=== PATIENT | female | born 1985 | race African-American/Black ===

== ENCOUNTER 2017-03-20 18:37 | Emergency (ER) | payer MEDICAID ==
[2017-03-20 18:51] VITALS: BMI 18.8
[2017-03-20] MEDS ORDERED: NS 1000 ML 1,000 ML IV ONE ×2 (19:14→23:40)
--- NOTE | 2017-03-20 19:15 | DR.GENAD ---
HPI - PCP Primary Care Physician: nfd - Complaint/Symptoms Chief Complaint:: thought she was coming on her period had about 3 tennis ball size clots come out 2 days ago. heavy bleeding has continued and patient is cold. drainage also has foul odor. patient does not know if she was and had a miscarrige. patient had a 2 years ago and the scar is burning now. Self Treatment fo Chief Complaint: patient has been on depo and missed the last 2 shots - Source History Provided: Patient - Mode of Arrival Mode of Arrival: Ambulatory - Timing Onset of Chief Complaint: 03/20/17 PMH - PMH Past Medical History: No Past Surgical History: Yes Surgical History: - Family History History of Family Medical Conditions: Yes Family Medical History: Diabetes Mellitus, Cancer, MS, Coronary Artery Disease, Heart Failure, Hypertension - Social History Does patient currently use any type of tobacco product: Yes Have you used tobacco products in the last 12 months: Yes Type of Tobacco Use: Cigarettes How many years tobacco product used: 10 Does any household member use tobacco: Yes Alcohol Use: Occasionally Do you use any recreational Drugs:: No Lives With: Mom Lives Where: Home - infectious screening In the last 2 months have you had wt loss of >10#?: NO Have you had fever, night sweats or hemotysis?: No Have you traveled outside the country in the last 6 months?: No Isolation: Standard ROS - Review of Systems Eyes: No Symptoms Reported ENTM: No Symptoms Reported Respiratoy: No Symptoms Reported Cardiovascular: No Symptoms Reported Gastrointestinal/Abdominal: No Symptoms Reported Genitourinary: No Symptoms Reported Neurological: No Symptoms Reported Musculoskeletal: No Symptoms Reported Integumentary: No Symptoms Reported Hematologic/Lymphatic: No Symptoms Reported Endocrine: No Symptoms Reported Psychiatric: No Symptoms Reported All Other Systems: Reviewed and Negative PE - Vital Signs Vitals: Temperature 98.8 F Pulse Rate 90 Respiratory Rate 16 Blood Pressure 92/55 O2 Sat by Pulse Oximetry 100 - General Limitations: No Limitations General Appearance: Alert, In No Apparent Distress - Head Head Exam: Normal Inspection, Atraumatic - Eyes Eye exam: Normal Appearance, PERRL, EOMI - ENT ENT Exam: Normal Exam External Ear Exam: Normal External Inspection TM/Canal Exam: Bilateral Normal Nose Exam: Normal Nose Exam Mouth Exam: Normal Inspection Throat Exam: Normal Inspection - Neck Neck Exam: Normal Inspection - Chest Chest Inspection: Normal Inspection - Respiratory Respiratory Exam: Normal Lung Sounds Bilat Respiratory Exam: Bilateral Clear to Auscultation - Cardiovascular Cardiovascular Exam: Regular Rate, Normal Rhythm - Abdominal Exam Abdominal Exam: Normal Inspection, Normal Bowel Sounds Abdominal Tenderness: negative: RUQ, RLQ, LUQ, LLQ, Epigastrium, Suprapubic, Diffuse, Mild, Moderate, Severe, Other - Extremities Extremities Exam: Normal Inspection, Full ROM - Back Back Exam: Normal Inspection - Neurologic Neurological Exam: Alert, Oriented X3, CN II-XII Intact - Psychiatric Psychiatric Exam: Normal Affect - Skin Skin Exam: Warm, Dry, Intact Course - Treatment Treatment: BP 104/94--History discussed with Dr Ramos, shed advised to have patient follow up with her physician for further evaluation and treatment - Reevaluation 1st: Improved - Education/Counseling Education/Counseling: Patient, Family Educated On: Treatment, Diagnosis, Prognosis, Needs for Follow Up ROR - Labs Reviewed Result Diagrams: 03/20/17 19:20 03/20/17 19:20 Laboratory: WBC 8.3 X10^3/uL (3.6-10.0) 03/20/17 19:20 RBC 3.11 X10^6/uL (3.5-5.4) L 03/20/17 19:20 Hgb 9.7 g/dL (12.0-16.0) L 03/20/17 19:20 Hct 27.4 % (36.0-47.0) L 03/20/17 19:20 MCV 87.9 fL (80.0-100.0) 03/20/17 19:20 MCH 31.0 pg (27.0-34.0) 03/20/17 19:20 MCHC 35.3 g/dL (33.0-35.0) H 03/20/17 19:20 RDW 13.2 % (11.6-16.5) 03/20/17 19:20 Plt Count 291 X10^3/uL (150.0-450.0) 03/20/17 19:20 MPV 7.4 fL (7.4-11.0) 03/20/17 19:20 Neut % 68.1 % (42.0-75.0) 03/20/17 19:20 Lymph % 25.2 % (21.0-51.0) 03/20/17 19:20 [place] % 4.1 % (0.0-13.0) 03/20/17 19:20 Eos % 1.4 % (0.9-2.9) 03/20/17 19:20 Baso % 1.2 % (0.2-1.0) H 03/20/17 19:20 Neut # 5.6 x10^3/uL (2.2-4.8) H 03/20/17 19:20 Lymph # 2.1 X10^3/uL (1.3-2.9) 03/20/17 19:20 [place] # 0.3 x10^3/uL (0.3-0.8) 03/20/17 19:20 Eos # 0.1 x10^3/uL (0.0-0.2) 03/20/17 19:20 Baso # 0.1 X10^3/uL (0.0-0.1) 03/20/17 19:20 Absolute Nucleated RBC 0.1 /100WBC 03/20/17 19:20 INR Target Range - 03/20/17 19:20 INR 1.11 (0.8-1.3) 03/20/17 19:20 PTT 37.7 SECONDS (22.9-36.5) H 03/20/17 19:20 PTT Comment - 03/20/17 19:20 Sodium 141 mmol/L (136-145) 03/20/17 19:20 Corrected Sodium TNP 03/20/17 19:20 Potassium 3.9 mmol/L (3.5-5.1) 03/20/17 19:20 Chloride 106 mmol/L (98-107) 03/20/17 19:20 Carbon Dioxide 27.2 mmol/L (21-32) 03/20/17 19:20 BUN 11 mg/dL (7-18) 03/20/17 19:20 Creatinine 0.62 mg/dL (0.55-1.02) 03/20/17 19:20 Est GFR (MDRD) Af Amer > 60 (>60) 03/20/17 19:20 Est GFR (MDRD) Non-Af > 60 (>60) 03/20/17 19:20 Glucose 80 mg/dL (65-99) 03/20/17 19:20 Calcium 9.1 mg/dL (8.5-10.1) 03/20/17 19:20 Corrected Calcium TNP 03/20/17 19:20 Total Bilirubin 0.40 mg/dL (0.2-1.0) 03/20/17 19:20 AST 15 Units/L (15-37) 03/20/17 19:20 ALT 19 Units/L (12-78) 03/20/17 19:20 Alkaline Phosphatase 62 Units/L (46-116) 03/20/17 19:20 Total Protein 7.8 g/dL (6.4-8.2) 03/20/17 19:20 Albumin 4.1 g/dL (3.4-5.0) 03/20/17 19:20 Globulin 3.7 g/dL (2.5-4.5) 03/20/17 19:20 Albumin/Globulin Ratio 1.1 Ratio (1.1-2.1) 03/20/17 19:20 HCG, Quant 2768 mIU/mL (0-6) H 03/20/17 19:20 - XRAY XRAY Interpreted by: Radiologist (Chest: There is no pneumothorax or effusion. No consolidation seen. Heart size is normal. Mild peribronchial thickening note. Impression: Periobronchial thickening suggest viral lower airways disease. ) - Diagnosis Discharge Problem: Bronchiolitis, Vaginal bleeding, Miscarriage - Discharge Plan Condition: Stable - Follow ups/Referrals Follow ups/Referrals: NFD,None [Primary Care Provider] - 3 days - Instructions
[2017-03-20 19:33] LABS: BASOPHILS # (AUTO) 0.1 X10^3/uL (0.0-0.1); BASOPHILS % (AUTO) 1.2 % (0.2-1.0); EOSINOPHILS # (AUTO) 0.1 x10^3/uL (0.0-0.2); EOSINOPHILS % (AUTO) 1.4 % (0.9-2.9); HEMATOCRIT 27.4 % (36.0-47.0); HEMOGLOBIN 9.7 g/dL (12.0-16.0); LYMPHOCYTES # (AUTO) 2.1 X10^3/uL (1.3-2.9); LYMPHOCYTES % (AUTO) 25.2 % (21.0-51.0); MEAN CORPUSCULAR HGB CONC 35.3 g/dL (33.0-35.0); MEAN CORPUSCULAR VOLUME 87.9 fL (80.0-100.0); MEAN PLATELET VOLUME 7.4 fL (7.4-11.0); MONOCYTES # (AUTO) 0.3 x10^3/uL (0.3-0.8); MONOCYTES % (AUTO) 4.1 % (0.0-13.0); NEUTROPHILS # (AUTO) 5.6 x10^3/uL (2.2-4.8); NEUTROPHILS % (AUTO) 68.1 % (42.0-75.0); PLATELET COUNT 291 X10^3/uL (150.0-450.0); RED BLOOD COUNT 3.11 X10^6/uL (3.5-5.4); RED CELL DISTRIBUTION WIDTH 13.2 % (11.6-16.5); WHITE BLOOD COUNT 8.3 X10^3/uL (3.6-10.0)
[2017-03-20 19:48] LABS: ALANINE AMINOTRANSFERASE 19 Units/L (12-78); ALBUMIN 4.1 g/dL (3.4-5.0); ALKALINE PHOSPHATASE 62 Units/L (46-116); ASPARTATE AMINO TRANSFERASE 15 Units/L (15-37); BLOOD UREA NITROGEN 11 mg/dL (7-18); CALCIUM 9.1 mg/dL (8.5-10.1); CARBON DIOXIDE 27.2 mmol/L (21-32); CHLORIDE 106 mmol/L (98-107); CREATININE 0.62 mg/dL (0.55-1.02); SODIUM 141 mmol/L (136-145); TOTAL PROTEIN 7.8 g/dL (6.4-8.2); eGFR BLACK RACES > 60 (>60); eGFR NON BLACK RACES > 60 (>60)
[2017-03-20 20:18] LABS: HCG,QUANTITATIVE 2768 mIU/mL (0-6)
[2017-03-20] MEDS ORDERED: NS 1000 ML 1,000 ML ONE (21:10)
[2017-03-21 01:17] VITALS: BP 99/58
== END 2017-03-21 01:17 | disposition home or self-care (01) ==
LOC: ER 19:06
DX: O20.9 Hemorrhage in early pregnancy, unspecified (principal); J21.9 Acute bronchiolitis, unspecified; O03.9 Complete or unspecified spontaneous abortion without complication; Z3A.00 Weeks of gestation of pregnancy not specified
CPT/HCPCS: 36415; 80053; 84702; 85025; 85610; 85730; 96365; 96367; 99283; A4222